=== PATIENT | female | born 1955 | race Caucasian/White ===

== ENCOUNTER 2021-08-11 14:52 | Emergency (ER) | payer MEDICARE, OTHER ==
[2021-08-11 16:34] LABS: #Basophils 0.1 10x3/uL (0.0-0.2); #Eosinphils 0.4 10x3/uL (0.0-0.5); #Monocytes 0.6 10x3/uL (0.0-1.1); #Neutrophils 8.9 10x3/uL (1.5-8.4); %Basophils 0.7 % (0.0-2.0); %Eosinophils 3.6 % (0.0-6.0); %Lymphocytes 17.1 % (18.0-47.0); %Monocytes 4.8 % (0.0-10.0); %Neutrophils 73.2 % (40.0-75.0); Hemoglobin 13.3 g/dL (12.0-15.5); Mean Corpuscular HGB CONC 32.9 g/dL (32.0-36.0); Mean Corpuscular Hemoglobin 29.4 pg (27.0-33.0); Mean Corpuscular Volume 89.4 fl (81.6-98.3); Platelet Count 253 10x3/uL (150-450); RBC Distribution Width 14.1 % (11.5-14.5); Red Blood Cell (RBC) Count 4.52 10x6/uL (3.90-5.03); White Blood Cell (WBC) Count 12.2 10x3/uL (3.5-10.5)
[2021-08-11 16:49] LABS: SARS-CoV-2 NAA Rapid Test Not Detected (NotDetected)
[2021-08-11 16:51] LABS: ALT (SGPT) 48 U/L (8-55); AST (SGOT) 58 U/L (5-34); Albumin 3.5 g/dL (3.4-4.8); Alkaline Phosphatase 266 U/L (40-110); Anion Gap 16 mmol/L (10-20); BUN (Urea Nitrogen) 9 mg/dL (9.8-20.1); Bilirubin, Total 0.6 mg/dL (0.2-1.2); CK (CPK) 36 U/L (29-168); Calc. Creatinine Clearance 0 mL/min (70-130); Calcium 8.8 mg/dL (7.8-10.44); Carbon Dioxide 24 mmol/L (23-31); Chloride 100 mmol/L (98-107); Globulin 2.9 g/dL (2.4-3.5); Glucose 180 mg/dL (80-115); Lipase 10 U/L (8-78); Potassium 4.3 mmol/L (3.5-5.1); Protein, Total 6.4 g/dL (5.8-8.1); Sodium 136 mmol/L (136-145)
== END 2021-08-11 18:12 | disposition home or self-care (01) ==
LOC: CSHERS 14:52
DX: J18.9 Pneumonia, unspecified organism (principal); Z20.822 Contact with and (suspected) exposure to COVID-19; I11.0 Hypertensive heart disease with heart failure; I50.9 Heart failure, unspecified; E11.9 Type 2 diabetes mellitus without complications
CPT/HCPCS: 71045; 80053; 82550; 83690; 83880; 84484; 85025; 85379; 93005; 99285; U0002

== ENCOUNTER 2021-12-04 07:48 | Outpatient (CLI) | payer MEDICARE, OTHER | END 2021-12-04 07:49 | disposition home or self-care (01) | LOC: CSHCT 07:48 | PROVIDERS: ATTEND Internal Medicine Cardiovascular Disease | DX: I50.22 Chronic systolic (congestive) heart failure (principal); R06.02 Shortness of breath; J84.9 Interstitial pulmonary disease, unspecified | CPT/HCPCS: 71260; 82565 ==

== ENCOUNTER 2022-04-01 11:48 | Emergency (ER) | payer MEDICARE, OTHER ==
[2022-04-01] MEDS ORDERED: Furosemide 40 MG/4 ML VIAL ONE (15:42)
== END 2022-04-01 14:12 | disposition home or self-care (01) ==
LOC: CSHERS 11:48
DX: U07.1 COVID-19 (principal); I11.0 Hypertensive heart disease with heart failure; I50.9 Heart failure, unspecified; E11.9 Type 2 diabetes mellitus without complications
CPT/HCPCS: 99283; J1940

== ENCOUNTER 2022-05-08 18:33 | Inpatient (IN) | payer MEDICARE, OTHER ==
[2022-05-08] MEDS ORDERED: Ondansetron ODT 4 MG TAB ONE (20:33)
[2022-05-08 21:29] LABS: Mean Corpuscular HGB CONC 34.1 g/dL (32.0-36.0); Mean Corpuscular Hemoglobin 30.8 pg (27.0-33.0); Mean Corpuscular Volume 90.3 fl (81.6-98.3); Mean Platelet Volume 10.7 fl (7.4-10.4); Platelet Count 170 10x3/uL (150-450); RBC Distribution Width 13.7 % (11.5-14.5); Red Blood Cell (RBC) Count 4.87 10x6/uL (3.90-5.03)
[2022-05-08 21:38] LABS: MDiff Complete? YES
[2022-05-08 21:42] LABS: ALT (SGPT) 54 U/L (8-55); AST (SGOT) 82 U/L (5-34); Albumin 3.7 g/dL (3.4-4.8); Alkaline Phosphatase 234 U/L (40-110); Anion Gap 15 mmol/L (10-20); BUN (Urea Nitrogen) 21 mg/dL (9.8-20.1); Bilirubin, Total 1.9 mg/dL (0.2-1.2); Calc. Creatinine Clearance 0 mL/min (70-130); Calcium 9.7 mg/dL (7.8-10.44); Carbon Dioxide 26 mmol/L (23-31); Chloride 97 mmol/L (98-107); Estimated GFR 70; Globulin 3.5 g/dL (2.4-3.5); Glucose 232 mg/dL (80-115); Lipase 12 U/L (8-78); Potassium 4.9 mmol/L (3.5-5.1); Protein, Total 7.2 g/dL (5.8-8.1); Sodium 133 mmol/L (136-145)
[2022-05-08 22:08] LABS: Band 5 % (5-11); Lymphocytes 7 % (21-51); Monocytes 8 % (0-10); Neutrophil 80 % (42-75)
[2022-05-08 22:09] LABS: Platelet Morphology Comment Appears Adequate; RBC Morphology Normal
[2022-05-08] MEDS ORDERED: Acetaminophen 500 MG TAB ONE (22:48)
[2022-05-08] MEDS ORDERED: Cefepime 2 GM VIAL ONE (22:49)
[2022-05-08 22:53] LABS: Bilirubin Neg (Negative); Blood, Urine 25 (Negative); Glucose, Urine (Dipstick) 250 mg/dL (Negative); Ketone, Urine 5 mg/dL (Negative); Leukocyte Negative (Negative); Nitrite Negative (Negative); Protein, Urine (Dipstick) 30 mg/dl (Neg-Trace); Specific Gravity, Urine 1.015 (1.005-1.030)
[2022-05-08] MEDS ORDERED: VANCOMYCIN 2 GRAM/400 ML BAG 2 GM in Premix Bag 1 BAG IVPB SCH (23:00)
[2022-05-08 23:07] LABS: Bacteria/HPF Rare-Few HPF (None Seen); RBC/HPF 0-3 HPF (0-3); Squamous Epithelial 0-3 HPF (0-3); WBC/HPF 0-3 HPF (0-3)
[2022-05-09 01:04] LABS: SARS-CoV-2 NAA Rapid Test Not Detected (NotDetected)
[2022-05-09] MEDS ORDERED: Communication Order-Pharmacy FS PRN (02:02)
[2022-05-09] MEDS ORDERED: Milk Of Magnesia 30 ML UDCUP PO PRN (02:06)
[2022-05-09] MEDS ORDERED: Melatonin 3 MG TAB PO PRN (02:06)
[2022-05-09] MEDS ORDERED: FLU VACC QS2022-23(65YR UP)/PF 240 MCG/0.7 ML SYRINGE IM ONE (03:30)
[2022-05-09 04:30] LABS: Anion Gap 13 mmol/L (10-20); BUN (Urea Nitrogen) 18 mg/dL (9.8-20.1); Calc. Creatinine Clearance 124 mL/min (70-130); Calcium 8.3 mg/dL (7.8-10.44); Carbon Dioxide 18 mmol/L (23-31); Chloride 106 mmol/L (98-107); Estimated GFR 94; Glucose 114 mg/dL (80-115); Potassium 4.4 mmol/L (3.5-5.1); Sodium 133 mmol/L (136-145)
[2022-05-09 04:36] LABS: Hemoglobin 13.8 g/dL (12.0-15.5); Mean Corpuscular HGB CONC 33.5 g/dL (32.0-36.0); Mean Corpuscular Hemoglobin 30.4 pg (27.0-33.0); Mean Corpuscular Volume 90.7 fl (81.6-98.3); Mean Platelet Volume 11.7 fl (7.4-10.4); RBC Distribution Width 13.9 % (11.5-14.5); Red Blood Cell (RBC) Count 4.54 10x6/uL (3.90-5.03); White Blood Cell (WBC) Count 21.5 10x3/uL (3.5-10.5)
[2022-05-09 04:59] LABS: MDiff Complete? YES; Platelet Count 125 10x3/uL (150-450)
[2022-05-09 05:11] LABS: Troponin I 0.016 ng/mL (< 0.028)
[2022-05-09 05:54] LABS: Band 6 % (5-11); Lymphocytes 11 % (21-51); Monocytes 9 % (0-10); Neutrophil 74 % (42-75)
[2022-05-09 06:00] LABS: Platelet Morphology Comment Appears Decreased; RBC Morphology Normal
[2022-05-09] MEDS: Enoxaparin Sodium 40 MG/0.4 ML SYRINGE SC SCH (07:48)
[2022-05-09] MEDS: Pantoprazole 40 MG VIAL IVP SCH (07:49)
[2022-05-09] MEDS: Sodium Chloride 0.9% 1,000 ML IV SCH ×3 (07:49→22:14)
[2022-05-09] MEDS ORDERED: Dextrose 50% Abboject 50 ML SYRINGE IVP PRN (10:15)
[2022-05-09] MEDS ORDERED: Dextrose 5% in Water 1,000 ML IV PRN (10:15)
[2022-05-09] MEDS: Cefepime 2 GM in Sodium Chloride 0.9% 100 ML IVPB SCH ×2 (10:21→22:03)
[2022-05-09] MEDS ORDERED: VANCOMYCIN 2 GRAM/400 ML BAG IVPB SCH (11:30)
[2022-05-09] MEDS: Acetaminophen 325 MG TAB PO PRN ×2 (11:33→20:32)
[2022-05-09] MEDS: Carvedilol 3.125 MG TAB PO SCH (20:31)
[2022-05-09] MEDS: Pregabalin 75 MG CAP PO SCH (20:34)
[2022-05-09] MEDS ORDERED: Lantus 1000 UNITS/10 ML VIAL SC SCH (21:00)
[2022-05-09] MEDS: VANCOMYCIN 2 GRAM/400 ML BAG 2 GM in Premix Bag 1 BAG IVPB SCH (23:14)
[2022-05-10] MEDS: Acetaminophen 325 MG TAB PO PRN ×2 (01:43→05:29)
[2022-05-10 05:06] LABS: Hemoglobin 12.4 g/dL (12.0-15.5); Mean Corpuscular HGB CONC 34.3 g/dL (32.0-36.0); Mean Corpuscular Hemoglobin 30.7 pg (27.0-33.0); Mean Corpuscular Volume 89.4 fl (81.6-98.3); Mean Platelet Volume 10.9 fl (7.4-10.4); Platelet Count 157 10x3/uL (150-450); RBC Distribution Width 13.4 % (11.5-14.5); Red Blood Cell (RBC) Count 4.04 10x6/uL (3.90-5.03); White Blood Cell (WBC) Count 15.3 10x3/uL (3.5-10.5)
[2022-05-10] MEDS: Levothyroxine Sodium 100 MCG TAB PO SCH (05:25)
[2022-05-10 06:42] VITALS: BMI 42.8
[2022-05-10] MEDS: Sodium Chloride 0.9% 1,000 ML IV SCH (10:13)
[2022-05-10] MEDS: Carvedilol 3.125 MG TAB PO SCH ×2 (10:15→21:05)
[2022-05-10] MEDS: Pregabalin 75 MG CAP PO SCH ×2 (10:15→21:05)
[2022-05-10] MEDS: Enoxaparin Sodium 40 MG/0.4 ML SYRINGE SC SCH (10:16)
[2022-05-10] MEDS: Pantoprazole 40 MG VIAL IVP SCH (10:16)
[2022-05-10] MEDS: Cefepime 2 GM in Sodium Chloride 0.9% 100 ML IVPB SCH ×2 (10:16→21:06)
[2022-05-10] MEDS: Acetaminophen/Codeine 30-300mg Tablet PO PRN (18:32)
[2022-05-10] MEDS ORDERED: Cefepime 2 GM VIAL ONE (20:58)
[2022-05-10] MEDS: Lantus 1000 UNITS/10 ML VIAL SC SCH (22:00)
[2022-05-10 22:58] LABS: Vancomycin, Trough 13.3 ug/mL
[2022-05-11] MEDS: VANCOMYCIN 2 GRAM/400 ML BAG 2 GM in Premix Bag 1 BAG IVPB SCH (02:47)
[2022-05-11] MEDS: Acetaminophen/Codeine 30-300mg Tablet PO PRN ×4 (02:49→23:33)
[2022-05-11] MEDS: Levothyroxine Sodium 100 MCG TAB PO SCH (07:52)
[2022-05-11] MEDS: Cefepime 2 GM in Sodium Chloride 0.9% 100 ML IVPB SCH ×2 (09:15→23:25)
[2022-05-11] MEDS: Enoxaparin Sodium 40 MG/0.4 ML SYRINGE SC SCH (09:16)
[2022-05-11] MEDS: Carvedilol 3.125 MG TAB PO SCH ×2 (09:17→23:25)
[2022-05-11] MEDS: Pregabalin 75 MG CAP PO SCH ×2 (09:18→23:24)
[2022-05-11] MEDS ORDERED: Iopamidol 370 76% 100 ML VIAL ONE (12:30)
[2022-05-11] MEDS: Enoxaparin Sodium 100 MG/ML SYRINGE SC SCH (23:22)
[2022-05-11] MEDS: Lantus 1000 UNITS/10 ML VIAL SC SCH (23:23)
[2022-05-12] MEDS: VANCOMYCIN 2 GRAM/400 ML BAG 2 GM in Premix Bag 1 BAG IVPB SCH ×2 (00:22→23:29)
[2022-05-12] MEDS: Acetaminophen/Codeine 30-300mg Tablet PO PRN ×4 (04:12→21:31)
[2022-05-12] MEDS: Levothyroxine Sodium 100 MCG TAB PO SCH (05:22)
[2022-05-12 05:49] LABS: Hemoglobin 13.6 g/dL (12.0-15.5); Mean Corpuscular HGB CONC 33.8 g/dL (32.0-36.0); Mean Corpuscular Volume 88.7 fl (81.6-98.3); Platelet Count 195 10x3/uL (150-450); RBC Distribution Width 13.4 % (11.5-14.5); Red Blood Cell (RBC) Count 4.53 10x6/uL (3.90-5.03)
[2022-05-12 06:13] LABS: Anion Gap 15 mmol/L (10-20); BUN (Urea Nitrogen) 14 mg/dL (9.8-20.1); Calc. Creatinine Clearance 127 mL/min (70-130); Calcium 8.7 mg/dL (7.8-10.44); Carbon Dioxide 19 mmol/L (23-31); Chloride 103 mmol/L (98-107); Estimated GFR 94; Glucose 125 mg/dL (80-115); Potassium 3.3 mmol/L (3.5-5.1); Sodium 134 mmol/L (136-145)
[2022-05-12] MEDS: Carvedilol 3.125 MG TAB PO SCH ×2 (10:00→21:24)
[2022-05-12] MEDS: Pregabalin 75 MG CAP PO SCH ×2 (10:01→21:23)
[2022-05-12] MEDS: Enoxaparin Sodium 100 MG/ML SYRINGE SC SCH (10:02)
[2022-05-12] MEDS: Cefepime 2 GM in Sodium Chloride 0.9% 100 ML IVPB SCH ×2 (10:03→23:17)
[2022-05-12] MEDS ORDERED: Baclofen 10 MG TAB PO SCH (20:00)
[2022-05-12] MEDS: Apixaban 5 MG TAB PO SCH (21:25)
[2022-05-12] MEDS: Lantus 1000 UNITS/10 ML VIAL SC SCH (21:32)
[2022-05-12 22:39] LABS: Vancomycin, Trough 15.1 ug/mL
[2022-05-13] MEDS: Levothyroxine Sodium 100 MCG TAB PO SCH (05:52)
[2022-05-13] MEDS: Cefepime 2 GM in Sodium Chloride 0.9% 100 ML IVPB SCH (09:49)
[2022-05-13] MEDS: Pregabalin 75 MG CAP PO SCH (09:50)
[2022-05-13] MEDS: Acetaminophen/Codeine 30-300mg Tablet PO PRN (09:50)
[2022-05-13] MEDS: Apixaban 5 MG TAB PO SCH (09:51)
[2022-05-13] MEDS: Carvedilol 3.125 MG TAB PO SCH (10:09)
[2022-05-13 21:36] VITALS: BP 141/63; TEMP 97.5
[2022-05-19] MEDS ORDERED: Apixaban 5 MG TAB PO SCH (21:00)
== END 2022-05-13 17:30 | disposition home or self-care (01) | DRG 871 ==
LOC: CSHERS 18:33 → CSHICU 05-09 01:38 → CSHTELE 05-09 17:12
PROVIDERS: ADMIT Family Medicine; ATTEND Family Medicine
DX: A41.9 Sepsis, unspecified organism (principal); G93.41 Metabolic encephalopathy; I26.99 Other pulmonary embolism without acute cor pulmonale; J96.01 Acute respiratory failure with hypoxia; L03.116 Cellulitis of left lower limb; I50.22 Chronic systolic (congestive) heart failure; Z68.41 Body mass index [BMI] 40.0-44.9, adult; Z20.822 Contact with and (suspected) exposure to COVID-19; R65.20 Severe sepsis without septic shock; E11.649 Type 2 diabetes mellitus with hypoglycemia without coma; E03.9 Hypothyroidism, unspecified; E78.5 Hyperlipidemia, unspecified; E66.9 Obesity, unspecified; I11.0 Hypertensive heart disease with heart failure; S09.90XA Unspecified injury of head, initial encounter; W18.30XA Fall on same level, unspecified, initial encounter; E11.42 Type 2 diabetes mellitus with diabetic polyneuropathy; G89.29 Other chronic pain; M54.9 Dorsalgia, unspecified; E11.621 Type 2 diabetes mellitus with foot ulcer; L97.529 Non-pressure chronic ulcer of other part of left foot with unspecified severity; L89.152 Pressure ulcer of sacral region, stage 2; Z79.890 Hormone replacement therapy; Z90.710 Acquired absence of both cervix and uterus; Z79.4 Long term (current) use of insulin; Z79.899 Other long term (current) drug therapy; Z90.49 Acquired absence of other specified parts of digestive tract; Z82.49 Family history of ischemic heart disease and other diseases of the circulatory system; Z83.6 Family history of other diseases of the respiratory system
CPT/HCPCS: 36415; 36416; 70450; 71045; 71275; 72125; 80048; 80053; 80202; 81003; 81015; 82140; 82550; 82565; 83605; 83690; 83880; 84145; 84484; 85025; 85027; 85379; 85652; 86140; 87040; 87804; 90471; 90662; 93005; 93306; 93970; 94640; 94760; 96365; 96375; 97139; C9113; G0008; J0692; J1650; J1815; J3370; J3490; J7050; J7620; Q0162; Q9967; U0002

== ENCOUNTER 2022-05-18 10:05 | Outpatient (CLI) | payer MEDICARE, OTHER | END 2022-05-18 10:06 | disposition home or self-care (01) | LOC: CSHWCC 10:05 | PROVIDERS: ATTEND Preventive Medicine Undersea and Hyperbaric Medicine | DX: S91.102D Unspecified open wound of left great toe without damage to nail, subsequent encounter (principal); R60.0 Localized edema | CPT/HCPCS: 97597 ==

== ENCOUNTER 2022-05-21 09:02 | Outpatient (CLI) | payer MEDICARE, OTHER | END 2022-05-21 09:03 | disposition home or self-care (01) | LOC: CSHWCC 09:02 | PROVIDERS: ATTEND Preventive Medicine Undersea and Hyperbaric Medicine | DX: S91.102D Unspecified open wound of left great toe without damage to nail, subsequent encounter (principal); R60.0 Localized edema | CPT/HCPCS: 97139; G0463; 99213 ==

== ENCOUNTER 2022-06-04 10:30 | Outpatient (CLI) | payer MEDICARE, OTHER | END 2022-06-04 10:31 | disposition home or self-care (01) | LOC: CSHWCC 10:30 | PROVIDERS: ATTEND Nurse Practitioner Family | DX: S91.102D Unspecified open wound of left great toe without damage to nail, subsequent encounter (principal); R60.0 Localized edema | CPT/HCPCS: 97139; G0463; 99213 ==

== ENCOUNTER 2022-06-18 11:03 | Outpatient (CLI) | payer MEDICARE, OTHER | END 2022-06-18 11:04 | disposition home or self-care (01) | LOC: CSHWCC 11:03 | PROVIDERS: ATTEND Nurse Practitioner Family | DX: S91.102D Unspecified open wound of left great toe without damage to nail, subsequent encounter (principal); R60.0 Localized edema ==

== ENCOUNTER 2022-11-25 13:12 | Outpatient (CLI) | payer MEDICARE, OTHER | END 2022-11-25 13:13 | disposition home or self-care (01) | LOC: CSHWCC 13:12 | PROVIDERS: ATTEND Nurse Practitioner Family | DX: E11.621 Type 2 diabetes mellitus with foot ulcer (principal); L97.522 Non-pressure chronic ulcer of other part of left foot with fat layer exposed | CPT/HCPCS: 11042; 97139; G0463; 99212 ==